=== PATIENT | male | born 1995 | race Caucasian/White ===

== ENCOUNTER 2020-11-09 21:15 | Emergency (ER) | payer SELFPAY ==
[2020-11-09 21:16] VITALS: BP 146/86; PULSE 86; RESP 16; TEMP 36.8; O2SAT 97; BMI 30.7
--- NOTE | 2020-11-09 22:44 | [facility].EDGENADL ---
ED Disposition Clinical Impression: Epistaxis Disposition: Home, Self-Care Condition on Discharge: Good Instructions: DI for Nosebleed Additional Instructions: Additional instructions for NOSE BLEED: Use Afrin spray, 1 to 2 sprays in each nostril every 12 hours for 3 days. Avoid blowing your nose, bending forward at the waist, rubbing or picking your nose, or straining. Avoid all bloodthinners for 2 days, including aspirin. If nosebleed starts again, squeeze your nostrils together with thumb and forefinger for 5 minutes. If unable to stop the bleeding, return to the emergency department. Call Dr. Medina (ENT) to schedule an appointment to be seen within 2-3 days if nosebleeds recur. Referrals: Provider,MD Liz [Primary Care Provider] - Shady Medina MD [Staff Physician] - - Critical Care Critical Care Time: No Attestation: On 11/09/20, the high probability of a clinically significant, sudden or life threatening deterioration of the following system(s) required my full and direct attention, intervention and personal management. The time I documented below is in addition to time spent performing reported procedures but includes the following listed in this critical care notation. Medical Decision Making - Jordan Inquiry Pt receiving controlled substance: No Vital Signs: 11/09/20 21:16 Temperature 98.3 F Temperature Source Oral Pulse Rate [Right] 86 Respiratory Rate 16 Blood Pressure [Right Arm] 146/86 H Blood Pressure Mean [Right Arm] 106 02 Sat by Pulse Oximetry 97 General Adult HPI - General Chief complaint: Epistaxis Stated complaint: NOSE BLEED Time Seen by Provider: 11/09/20 22:44 Mode of Arrival: Ambulatory Limitations: No Limitations Description of Symptoms (Recalled from ER Triage Doc. by RN): pt c/o bilateral nose bleed - History of Present Illness HPI narrative: States that this morning he picked his right nares and immediately developed a nosebleed. Works all day without problems. Says that he picked or rub his nose again this evening and it again began bleeding severely. Plugged up his nose and it came out of the left side as well. Expressed some clots. Arrives with a tampon in each nares. Last nosebleed approximately 10 years ago. He is not on any blood thinners. Blood pressure was elevated at home, 190 systolic during the episode of severe bleeding, but states that he was anxious and heart was pounding. He does not have a history of hypertension. - Related Data Allergies Allergy/AdvReac Type Severity Reaction Status Date / Time NO KNOWN ALLERGIES - NKA Allergy Unknown Uncoded 03/28/17 14:56 [facility] History - Hepatitis A Screen Drug use history?: No High risk sexual behaviors?: No History of sexually transmitted infection?: No Currently employed?: No Childcare worker?: No Do you have indoor plumbing?: Yes Do you have electricity?: Yes Attestation statement:: This patient has been screened for Hepatitis A risk factors. I have reviewed the patient's past medical history: Yes - Social History Alcohol Intake: never Occupational Status: employed ROS Obtained: Yes Systems reviewed as appropriate & no additional complaints - Constitutional Constitutional: Denies fever(s) - ENT Ears, Nose, Mouth, and Throat: Reports as per HPI, Reports epistaxis Physical Exam - General General appearance: alert, in no apparent distress Comment: Tampons in both nares - Head Head exam: atraumatic, normocephalic - Eye Eye exam: Present: normal appearance, EOMI - Expanded ENT Exam Comment: Tampon was removed. No active bleeding. However, there is a small nubbin of white on the right septum at Kiesselbach's plexus consistent with an exposed blood vessel end. This area was cauterized. - Respiratory Respiratory exam: Absent: respiratory distress - Cardiovascular Cardiovascular exam: Present: regular rate - Extremities Exam Extremities exam: P
[2020-11-10 00:02] VITALS: BP 132/79; PULSE 75; RESP 18; TEMP 36.8; O2SAT 99
== END 2020-11-10 00:04 | disposition home or self-care (01) ==
PROVIDERS: Emergency Provider Emergency Medicine
DX: R04.0 Epistaxis (principal)
CPT/HCPCS: 30901; 99282